=== PATIENT | male | born 2005 | race Caucasian/White ===

== ENCOUNTER 2025-01-08 21:51 | Emergency (ER) | payer SELFPAY ==
--- NOTE | ~2025-01-08 | XR_ITS ---
XR facial bones min 3V Ordering provider: Brennen Rodriguez History: . hit in face with socket . Comparison: None. FINDINGS: BONES: No acute fracture as visualized. PARANASAL SINUSES: Well aerated. SOFT TISSUES: Normal. IMPRESSION: No visualized acute facial fracture. Reviewed, dictated and finalized at location A.
[2025-01-08 22:19] VITALS: BP 142/65; PULSE 82; RESP 16; TEMP 36.7; O2SAT 98
[2025-01-09 00:20] VITALS: BP 137/68; PULSE 67; RESP 18; O2SAT 98
--- NOTE | 2025-01-09 00:50 | ED_ITS ---
HPI - Head Injury General Chief complaint: Head Injury Stated complaint: hit in face with swivel socket Time Seen by Provider: 01/09/25 00:19 History of Present Illness HPI Narrative: Patient is a 19-year-old male who presents to the ER after being hit in the face with a swivel socket. He reports he was working on his truck when the part flung off and hit him in his right eye. Patient denies any headache, eye socket tenderness with palpation, or visual changes. He reports his only medical history is ADHD. Related Data Allergies Allergy/AdvReac Type Severity Reaction Status Date / Time No Known Allergies Allergy Verified 01/08/25 21:52 Review of Systems Review of Systems: All systems reviewed & are unremarkable except as noted in HPI and below Exam Narrative: GENERAL: Well appearing, well-nourished, non-toxic, in no acute distress. HEAD: Normocephalic, small laceration to the outer aspect of pt's R eyelid, no visible injury to pt's eye, bleeding controlled NECK: Supple. No adenopathy, no masses. RESPIRATORY: Airway patent, respirations nonlabored. Clear to auscultation bilaterally, no rales, rhonchi, wheezing. CARDIOVASCULAR: Regular rate and rhythm without murmurs, rubs, or gallops. Peripheral pulses 2+ and equal bilaterally. ABDOMINAL: Soft, nontender, nondistended, no hepatosplenomegaly. Normoactive BS. MUSCULOSKELETAL: Moves all extremities. Strength/ROM intact without gross deformities. SKIN: Warm, dry, normal color. No rashes. NEURO: A&O X3. Speech clear. Cranial nerves II-XII intact. No ataxic movements. PSYCHIATRIC: Appropriate mood and affect. Normal interaction. Course Vital Signs Vital signs: Vital Signs Temperature 36.7 C 01/08/25 22:19 Pulse Rate 82 01/08/25 22:19 Respiratory Rate 16 01/08/25 22:19 Blood Pressure 142/65 H 01/08/25 22:19 Pulse Oximetry 98 01/08/25 22:19 Oxygen Delivery Room Air 01/08/25 22:19 Temperature 36.7 C 01/08/25 22:19 Pulse Rate 67 01/09/25 00:20 Respiratory Rate 18 01/09/25 00:20 Blood Pressure 137/68 01/09/25 00:20 Pulse Oximetry 98 01/09/25 00:20 Oxygen Delivery Room Air 01/08/25 22:19 MDM - Head Injury MDM Narrative Medical decision making narrative: Patient is a 19-year-old male who presents to the ER after being hit in the face with a swivel socket. He reports he was working on his truck when the part flung off and hit him in his right eye. Patient denies any headache, eye socket tenderness with palpation, or visual changes. He reports his only medical history is ADHD. Imaging Ordered: CT facial bones Medications Ordered: Tdap Results: Pt's CT scan indicates No visualized acute facial fracture. Diagnosis: concussion without loss of consciousness, R eyelid laceration Patient Education/Shared MDM: Results of imaging shared with patient. He denies any significant pain. Patient strongly advised to follow-up with his PCP as soon as possible. He will be given his Tetanus shot here in the ER, as he doesn't know when he last had one. He will not be discharged home with any new prescriptions. Strict return precautions provided. Patient verbalized understanding and is in agreement with plan. Vital signs stable at time of discharge. All questions answered. Differential Diagnosis Differential diagnosis: Likely concussion without loss of consciousness, closed head injury and subdural hematoma Imaging Data Attestation: I personally reviewed and interpreted this imaging study as foll ows: Radiologist's impression: Impressions Face X-Ray 01/08/25 22:52 IMPRESSION: No visualized acute facial fracture. Discharge Plan Discharge Clinical Impression: Closed head injury, Concussion without loss of consciousness, Eyelid laceration, right Patient Disposition: Home Condition: Stable Instructions: Antibiotic Form, Black Eye (ED), Concussion (ED) Additional Instructions: Please return to the ER with any worsening symptoms. Follow-up with primary care provider as soon as possible. You may take Tylenol and ibuprofen for pain control. Patient Language: Marshallese Follow-up/Referrals: PHYSICIAN,[employer] ENGINEER [Primary Care Provider] - Vish Saldivar MD [Physician] - (primary care) Stand Alone Forms: Work/School Release IP Time of Disposition: 00:55
[2025-01-09] MEDS: TETANUS,DIPHTHERIA,AC PERTUSSIS ADULT (0.5 ML) BOOSTRIX IM (00:51)
== END 2025-01-09 01:10 | disposition home or self-care (01) ==
PROVIDERS: Emergency Provider Registered Nurse
DX: S06.0X0A Concussion without loss of consciousness, initial encounter (principal); S01.111A Laceration without foreign body of right eyelid and periocular area, initial encounter; Z23 Encounter for immunization; W20.8XXA Other cause of strike by thrown, projected or falling object, initial encounter
CPT/HCPCS: 70150; 90471; 90715; 99283

== ENCOUNTER 2025-01-09 21:13 | Emergency (ER) | payer OTHER, SELFPAY ==
[2025-01-09 21:25] VITALS: BP 142/72; PULSE 77; RESP 14; TEMP 36.9; O2SAT 99
--- NOTE | 2025-01-09 21:51 | PC.NURSE ---
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 Pt ambulatory with steady gait to exit. no distress noted.
== END 2025-01-09 23:35 | disposition left against medical advice (07) ==
DX: S09.90XA Unspecified injury of head, initial encounter (principal); W22.8XXA Striking against or struck by other objects, initial encounter
CPT/HCPCS: 99199

== ENCOUNTER 2025-01-12 09:38 | Emergency (ER) | payer SELFPAY ==
--- NOTE | ~2025-01-12 | CT_ITS ---
CT facial bones wo con Ordering provider: Divya Barrios PA-C History: . head injury . Comparison: Reference is made to a plain film evaluation of the facial bones dated 01/08/2025 Technique: Thin slice axial CT of the facial bones was performed without contrast. Coronal and sagit saurabh reformatted images were also obtained. The dose-length product was 285.32 mGy-cm. FINDINGS: PARANASAL SINUSES: Mucoperiosteal thickening within the bilateral maxillary sinuses. Remaining parana benjy sinuses are unremarkable. BONES: No facial fracture including no nasal bone fracture. ORBITS AND SUPERFICIAL SOFT TISSUES: The optic globes and orbits are normal. The superficial soft tis sues are normal. VISUALIZED MASTOIDS: Well aerated. LIMITED VISUALIZED BRAIN PARENCHYMA: Unremarkable. IMPRESSION: No acute or subacute facial bone fracture. Inflammatory sinus disease. Reviewed, dictated and finalized at location A.
--- NOTE | ~2025-01-12 | CT_ITS ---
History: Remote history of blunt head trauma, now with nausea and vomiting PROCEDURE: CT head without contrast. COMPARISON: None TECHNIQUE: Axial imaging of the head performed from the skull base to the vertex without IV contrast. Sagittal a nd coronal reformations obtained. DLP: 605 mGy-cm FINDINGS: The ventricles are normal in size, shape and position. There is no mass, mass effect or midline shift. There is no abnormal extra-axial fluid collection or intracranial hemorrhage. Visualized paranasal sinuses are clear. The mastoid air cells are well aerated. No acute displaced fractures within the overlying cranium. Impression: No acute intracranial hemorrhage or suspicious mass effect. Reviewed, dictated and finalized at location A. Impression: No acute intracranial hemorrhage or suspicious mass effect.
[2025-01-12 09:51] VITALS: BP 120/70; PULSE 65; RESP 18; TEMP 36.7; O2SAT 99
--- NOTE | 2025-01-12 11:52 | ED.HEATRA ---
HPI - Head Injury General Chief complaint: Nausea/Vomiting/Diarrhea Stated complaint: NAUSEA, VOMIT, ABD PAIN Time Seen by Provider: 01/12/25 11:21 Source: patient Mode of arrival: ambulatory Limitations: no limitations History of Present Illness HPI Narrative: This is a 19-year-old male that presents to the emergency department for headaches, nausea and vomiting. Reports he was seen a couple of days prior for a head injury. He has continued to experience symptoms which prompted him to be seen again. Reports he was hit in the area of his right eye with a socket while he was working on his truck. Reports he has continued to have headaches, nausea and vomiting since. He has continued to go to work. Denies any problems with the eye. No pain in his eye or visual changes. No focal numbness or weakness. Related Data Allergies Allergy/AdvReac Type Severity Reaction Status Date / Time No Known Allergies Allergy Verified 01/12/25 09:43 Review of Systems Review of Systems: CONSTITUTIONAL: Denies fever EYES: Denies visual changes, redness, or discharge. GASTROINTESTINAL: Reports nausea, vomiting NEUROLOGIC: Reports headache. Denies numbness, or weakness. All systems reviewed & are unremarkable except as noted in HPI and below PMFSH Past Medical History Medical History (Updated 01/12/25 @ 13:22 by Divya Barrios PA-C) History of ADHD Social History Social History (Updated 01/12/25 @ 11:55 by Divya Barrios PA-C) Smoking status: Current every day smoker Tobacco type: e-cigarettes/vaping Exam Narrative: GENERAL: Well-appearing, well-nourished, and in no acute distress. HEAD: Normocephalic, atraumatic. EYES: PERRLA and EOMI. ENT: Nares clear, no rhinorrhea or epistaxis. Mucous membranes moist. Oropharynx without tonsillar hypertrophy exudate or other lesions. Bilateral TMs pearly ace non-bulging NECK: Supple. No adenopathy or masses. CHEST: Clear to auscultation. No respiratory distress. No wheezes rales or rhonchi HEART: Regular rate and rhythm. No murmur heard. Normal peripheral pulses. EXTREMITIES: Normal range of motion. No edema. Strength equal in bilateral upper and lower extremities (5/5) SKIN: Warm, dry, no rash. NEURO: No focal deficits. Alert and oriented x3. Cranial nerves 2-12 grossly intact PSYCH: Normal mood and affect Course Course Emergency Course: patient updated on his workup and agrees with plan of care Vital Signs Vital signs: Vital Signs Temperature 98.0 F 01/12/25 09:51 Pulse Rate 65 01/12/25 09:51 Respiratory Rate 18 01/12/25 09:51 Blood Pressure 120/70 01/12/25 09:51 Pulse Oximetry 99 01/12/25 09:51 Temperature 98.0 F 01/12/25 09:51 Pulse Rate 62 01/12/25 13:04 Respiratory Rate 16 01/12/25 13:04 Blood Pressure 111/50 L 01/12/25 13:04 Pulse Oximetry 98 01/12/25 13:04 MDM - Head Injury MDM Narrative Medical decision making narrative: Patient presents the emergency department for nausea, vomiting, headache. Reporting recent head injury. Patient is neurologically intact. CT brain, facial bones without acute findings. Patient updated on workup. Instructed on continued care of concussion. He is to follow up with primary provider. He was given warnings to return the ER Differential Diagnosis Differential diagnosis: Likely concussion without loss of consciousness, closed head injury, postconcussion syndrome and subdural hematoma Imaging Data Radiologist's impression: ITS Impressions Head CT 01/12/25 12:04 Impression: No acute intracranial hemorrhage or suspicious mass effect. Face CT 01/12/25 12:06 IMPRESSION: No acute or subacute facial bone fracture. Inflammatory sinus disease. Critical Care Time Critical Care Time Critical Care Time: No Discharge Plan Discharge Clinical Impression: Head injury Qualifiers: Encounter type: subsequent encounter Qualified Code(s): S09.90XD - Unspecified injury of head, subsequent encounter Patient Disposition: Home Condition: Stable Instructions: Concussion (ED) Additional Instructions: Return to the ER if you experience vision changes, you are unable to keep down liquids or solids, you pass out, numbness/weakness, or any other symptoms that are concerning to you Rest. Remain well hydrated. Tylenol or Ibuprofen as needed for pain Follow up with your primary care doctor Patient Language: Nigerian Follow-up/Referrals: Vish Saldivar MD [Physician] - UNKNOWN,DOCTOR [Primary Care Provider] - Stand Alone Forms: Work/School Release IP
[2025-01-12 13:04] VITALS: BP 111/50; PULSE 62; RESP 16; O2SAT 98
== END 2025-01-12 13:35 | disposition home or self-care (01) ==
PROVIDERS: Emergency Provider Physician Assistant
DX: S09.90XA Unspecified injury of head, initial encounter (principal); F17.290 Nicotine dependence, other tobacco product, uncomplicated; W22.8XXA Striking against or struck by other objects, initial encounter
CPT/HCPCS: 70450; 70486; 99284